=== PATIENT | female | born 1965 | race Caucasian/White ===

== ENCOUNTER 2017-09-09 18:26 | Emergency (ER) | payer SELFPAY ==
[~2017-09-09] VITALS: Ht 157.5 cm; Wt 104.3 kg
[~2017-09-09 18:26] MED LIST: AMOX500C2 PO; FLT05NA16 NS; Flexeril PO; HYDR-3454 PO; NAPR-1071 PO; PHEN-566 PO
--- OUTSIDE RECORDS SUMMARY | 2017-09-09 18:32 | XMS REPORT ---
Author Author HANSEL ROSA Organization [facility] Address [address] [place] [address] Care Team Providers Care Thread Reeler Name Role Phone HAMMLATASHA MartinezELE Unavailable PROBLEMS Type Condition ICD9-CM Code EXQ76-RW Code Onset Dates Condition Status SNOMED Code Problem Abnormal appearance of skin L98.9 Active 310885327 Problem Encounter for well woman exam Z01.419 Active 704700584 Problem STD (sexually transmitted disease) A64 Active 5281066 Problem Acquired hypothyroidism E03.9 Active 253055069 Problem Lump of breast, right N63 Active 24670552 Problem Menopausal symptoms N95.1 Active 35885716 Problem Hot flashes due to menopause N95.1 Active 706442382 Problem Routine adult health maintenance Z00.00 Active 426156557 Problem Encounter for screening for malignant neoplasm of cervix Z12.4 Active 945663302 Problem Morbid (severe) obesity due to excess calories E66.01 Active 150768943 Problem Body mass index (BMI) of 40.0-44.9 in adult Z68.41 Active 786781488 ALLERGIES No Information SOCIAL HISTORY Never Assessed PLAN OF CARE VITAL SIGNS MEDICATIONS No Known Medications RESULTS No Results PROCEDURES No Known procedures IMMUNIZATIONS No Known Immunizations MEDICAL (GENERAL) HISTORY Type Description Date Medical History + H Pylori infection Medical History Helicobacter pylori (H. pylori) infection Surgical History section x4 Surgical History tubal ligation Surgical History cholecystectomy Surgical History hernia repair
--- OUTSIDE RECORDS SUMMARY | 2017-09-09 18:32 | XMS REPORT ---
Author Author HANSEL ROSA Organization [facility] Address [address] [place] [address] Care Team Providers Care Esl Instructor Name Role Phone HAMMROSA Martinez Unavailable PROBLEMS Type Condition ICD9-CM Code RWM12-AL Code Onset Dates Condition Status SNOMED Code Problem Acquired hypothyroidism E03.9 Active 876770252 Assessment Abnormal TSH R79.89 09 Apr, 2016 Active 145813869 Problem Encounter for well woman exam Z01.419 Active 316934904 Problem Encounter for screening for malignant neoplasm of cervix Z12.4 Active 019682609 Problem Abnormal appearance of skin L98.9 Active 070012386 Problem Lump of breast, right N63 Active 28317615 Problem STD (sexually transmitted disease) A64 Active 6789433 Problem Routine adult health maintenance Z00.00 Active 776783184 ALLERGIES Unknown Allergies SOCIAL HISTORY No smoking Hx information available PLAN OF CARE VITAL SIGNS MEDICATIONS Unknown Medications RESULTS Name Result Date Reference Range THYROID ANALYZER 2016-05-01 TSH 8.380 0.450-4.500 T4,Free (Direct) 0.79 0.82-1.77 PROCEDURES Procedure Date Ordered Related Diagnosis Body Site ROUTINE VENIPUNCTURE 2016-05-01 N/A ASSAY THYROID STIM HORMONE May 01, 2016 VENIPUNCT, ROUTINE* May 01, 2016 IMMUNIZATIONS No Known Immunizations
--- OUTSIDE RECORDS SUMMARY | 2017-09-09 18:32 | XMS REPORT ---
Author Author ROSA HAMM Organization [employer] Address Unknown Phone Unavailable Care Team Providers Care Atomic Process Engineer Name Role Phone ROSA HAMM CP Unavailable Allergies No Known Allergies Problems Problem Type Condition Code Onset Dates Condition Status Assessment Acquired hypothyroidism E03.9 Active Problem Lump of breast, right N63 Active Problem Acquired hypothyroidism E03.9 Active Problem Body mass index (BMI) of 40.0-44.9 in adult Z68.41 Active Problem Encounter for well woman exam Z01.419 Active Problem Morbid (severe) obesity due to excess calories E66.01 Active Problem Routine adult health maintenance Z00.00 Active Problem Abnormal appearance of skin L98.9 Active Problem Encounter for screening for malignant neoplasm of cervix Z12.4 Active Problem STD (sexually transmitted disease) A64 Active Medications Medication Code System Code Instructions Start Date End Date Status Dosage Levothyroxine Sodium [facility] [address]-14 50 MCG Orally May 12, 2016 1 tablet on an empty stomach in the morning Results No Known Results Summary Purpose eClinicalWorks Submission
--- OUTSIDE RECORDS SUMMARY | 2017-09-09 18:33 | XMS REPORT ---
Author Author HANSEL ROSA Organization [facility] Address [address] [place] [address] Care Team Providers Care Silk Opener Name Role Phone HAMMROSA Martinez Unavailable PROBLEMS Type Condition ICD9-CM Code ZQU78-YQ Code Onset Dates Condition Status SNOMED Code Problem Abnormal appearance of skin L98.9 Active 352066274 Problem Encounter for well woman exam Z01.419 Active 519823043 Problem STD (sexually transmitted disease) A64 Active 7852518 Problem Acquired hypothyroidism E03.9 Active 694684649 Problem Lump of breast, right N63 Active 54638004 Problem Menopausal symptoms N95.1 Active 68850923 Problem Hot flashes due to menopause N95.1 Active 414376824 Problem Routine adult health maintenance Z00.00 Active 389557083 Problem Encounter for screening for malignant neoplasm of cervix Z12.4 Active 575546560 Problem Morbid (severe) obesity due to excess calories E66.01 Active 152507314 Problem Body mass index (BMI) of 40.0-44.9 in adult Z68.41 Active 812941452 ALLERGIES No Information SOCIAL HISTORY Never Assessed PLAN OF CARE VITAL SIGNS MEDICATIONS Medication Instructions Dosage Frequency Start Date End Date Duration Status Levothyroxine Sodium 75 MCG Orally Once a day 1 tablet on an empty stomach in the morning 24h 20 Apr, 2016 60 days Active RESULTS No Results PROCEDURES No Known procedures IMMUNIZATIONS No Known Immunizations MEDICAL (GENERAL) HISTORY Type Description Date Medical History + H Pylori infection Medical History Helicobacter pylori (H. pylori) infection Surgical History section x4 Surgical History tubal ligation Surgical History cholecystectomy Surgical History hernia repair
--- OUTSIDE RECORDS SUMMARY | 2017-09-09 18:33 | XMS REPORT ---
Author Author ROSA HAMM Organization [employer] Address Unknown Phone Unavailable Care Team Providers Care Japanese Interpreter Name Role Phone ROSA HAMM CP Unavailable Allergies No Known Allergies Problems Problem Type Condition Code Onset Dates Condition Status Assessment Breast lump on right side at 2 o'clock position N63 Active Problem Encounter for screening for malignant neoplasm of cervix Z12.4 Active Problem STD (sexually transmitted disease) A64 Active Problem Encounter for well woman exam Z01.419 Active Problem Lump of breast, right N63 Active Problem Helicobacter pylori (H. pylori) infection 041.86 Active Problem Routine adult health maintenance Z00.00 Active Problem Abnormal appearance of skin L98.9 Active Medications No Known Medications Results No Known Results Summary Purpose eClinicalWorks Submission
--- OUTSIDE RECORDS SUMMARY | 2017-09-09 18:33 | XMS REPORT ---
Author Author ROSA HAMM Organization [facility] Address [address] [place] [address] Care Team Providers Care Health Information Specialist Name Role Phone HAMMLATASHA MartinezELE Unavailable PROBLEMS Type Condition ICD9-CM Code QVN19-TQ Code Onset Dates Condition Status SNOMED Code Problem Abnormal appearance of skin L98.9 Active 705390859 Problem Encounter for well woman exam Z01.419 Active 398275040 Problem STD (sexually transmitted disease) A64 Active 2736573 Problem Acquired hypothyroidism E03.9 Active 510494658 Problem Lump of breast, right N63 Active 88867368 Problem Menopausal symptoms N95.1 Active 97359130 Problem Hot flashes due to menopause N95.1 Active 044019311 Problem Routine adult health maintenance Z00.00 Active 146928226 Problem Encounter for screening for malignant neoplasm of cervix Z12.4 Active 175012419 Problem Morbid (severe) obesity due to excess calories E66.01 Active 788342362 Problem Body mass index (BMI) of 40.0-44.9 in adult Z68.41 Active 855650083 ALLERGIES No Known Allergies SOCIAL HISTORY Never Assessed PLAN OF CARE Activity Details Follow Up 4 Weeks Reason:weight management VITAL SIGNS Height 63 in 2016-11-05 Weight 238.3 lbs 2016-11-05 Temperature 97.6 degrees Fahrenheit 2016-11-05 Heart Rate 86 bpm 2016-11-05 Respiratory Rate 18 2016-11-05 BMI 42.21 kg/m2 2016-11-05 Blood pressure systolic 129 mmHg 2016-11-05 Blood pressure diastolic 78 mmHg 2016-11-05 MEDICATIONS Medication Instructions Dosage Frequency Start Date End Date Duration Status Premarin 0.625 MG/GM Vaginal twice weekly with 3 days between each application apply pea sized amount to vaginal vault Oct, 12 months Active Levothyroxine Sodium 75 MCG Orally Once a day 1 tablet on an empty stomach in the morning 24h 20 Apr, 2016 60 days Active Contrave 8-90 MG Orally Twice a day 2 tablets twice a day 12h 03 Jun, 2016 Nov, 30 days Active RESULTS No Results PROCEDURES No Known procedures IMMUNIZATIONS No Known Immunizations MEDICAL (GENERAL) HISTORY Type Description Date Medical History + H Pylori infection Medical History Helicobacter pylori (H. pylori) infection Surgical History section x4 Surgical History tubal ligation Surgical History cholecystectomy Surgical History hernia repair
--- OUTSIDE RECORDS SUMMARY | 2017-09-09 18:33 | XMS REPORT ---
Author Author ROSA HAMM [facility] eClinicalWorks Address Unknown Phone Unavailable Care Team Providers Care New Business Clerk Name Role Phone ROSA HAMM CP Unavailable Allergies, Adverse Reactions, Alerts Substance Reaction Event Type N.K.D.A. Info Not Available Non Drug Allergy Problems Problem Type Condition Code Onset Dates Condition Status Assessment Acquired hypothyroidism E03.9 Active Problem Lump of breast, right N63 Active Problem Acquired hypothyroidism E03.9 Active Assessment Morbid (severe) obesity due to excess calories E66.01 Active Assessment Body mass index (BMI) of 40.0-44.9 in adult Z68.41 Active Problem Body mass index (BMI) of [...] Date End Date Status Dosage Levothyroxine Sodium [facility] [address]-11 25 MCG Orally Once a day May 12, 2016 1 tablet on an empty stomach in the morning Naproxen [facility] [address]-17 500 MG Orally Twice a day 1 tablet as needed Contrave [facility] [address]-43 8-90 MG Orally Twice a day Jun 25, 2016 1 tab in am x 1 wk, one tab bid x 1 wk, 2 tabs am and 1 pm x 1 wk, then 2 tabs bid Cyclobenzaprine HCl [facility] [address]-74 10 mg Orally 2 times a day 1 tablet as needed Procedures Procedure Coding System Code Date VENIPUNCT, ROUTINE* CPT-4 89138 Jun 25, 2016 ASSAY THYROID STIM HORMONE CPT-4 22259 Jun 25, 2016 Office Visit, Est Pt., Level 3 CPT-4 48315 Jun 25, 2016 Vital Signs Date/Time: Jun 25, 2016 Cardiac Monitoring Heart Rate 84 bpm Weight 232.7 lbs Height 63 in BMI 41.22 Index Blood Pressure Diastolic 80 mmHg Blood Pressure Systolic 132 mmHg Results Name Result Date Reference Range Unit Abnormality Flag ROUTINE VENIPUNCTURE TSH ----TSH 7.340 [id number] 0.450-4.500 uIU/mL H Summary Purpose eClinicalWorks Submission
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
--- OUTSIDE RECORDS SUMMARY | 2017-09-09 18:33 | XMS REPORT ---
Author Author ROSA HAMM [facility] eClinicalWorks Address Unknown Phone Unavailable Care Team Providers Care Medical Csr Name Role Phone ROSA HAMM CP Unavailable Allergies, Adverse Reactions, Alerts Substance Reaction Event Type N.K.D.A. Info Not Available Non Drug Allergy Problems Problem Type Condition Code Onset Dates Condition Status Assessment STD (sexually transmitted disease) A64 Active Assessment Encounter for well woman exam Z01.419 Active Assessment Encounter for screening for malignant neoplasm of cervix Z12.4 Active Assessment Abnormal appearance of skin L98.9 Active Assessment Routine adult health maintenance Z00.00 Active Problem Encounter for screening for malignant neoplasm of cervix Z12.4 Active Problem STD (sexually transmitted disease) A64 Active Problem Encounter for well woman exam Z01.419 Active Problem Lump of breast, right N63 Active Problem Helicobacter pylori (H. pylori) infection 041.86 Active Problem Routine adult health maintenance Z00.00 Active Problem Abnormal appearance of skin L98.9 Active Medications Medication Code System Code Instructions Start Date End Date Status Dosage Augmentin [facility] [address]-33 875-125 MG Orally every 12 hrs Apr 06, 2016 Apr 16, 2016 1 tablet Procedures Procedure Coding System Code Date NGUYEN VAG, DNA, DIR PROBE CPT-4 52097 Apr 10, 2016 TRICHOMONAS ASSAY W/OPTIC CPT-4 23439 Apr 10, 2016 CULTURE, BACTERIA, OTHER CPT-4 78556 Apr 10, 2016 LIPID PANEL CPT-4 06389 Apr 10, 2016 ASSAY THYROID STIM HORMONE CPT-4 22084 Apr 10, 2016 No Charge CPT-4 34492 Apr 10, 2016 SPECIMEN HANDLING CPT-4 05105 Apr 10, 2016 VENIPUNCT, ROUTINE* CPT-4 56803 Apr 10, 2016 BIOPSY OF SKIN LESION CPT-4 44933 Apr 10, 2016 COMPLETE CBC W/AUTO DIFF WBC CPT-4 60385 Apr 10, 2016 Separate E/M CPT-4 25 Apr 10, 2016 COMPREHEN METABOLIC PANEL CPT-4 91053 Apr 10, 2016 GLYCATED HEMOGLOBIN TEST CPT-4 39993 Apr 10, 2016 Vital Signs Date/Time: Apr 10, 2016 Blood Pressure Systolic 132 mmHg Cardiac Monitoring Heart Rate regular:65 bpm Height 63 in Blood Pressure Diastolic 92 mmHg Results No Known Results Summary Purpose eClinicalWorks Submission
--- OUTSIDE RECORDS SUMMARY | 2017-09-09 18:33 | XMS REPORT ---
Author Author ROSA HAMM Organization [facility] Address [address] [place] [address] Care Team Providers Care Clinical Services Director Name Role Phone ROSA HAMM Unavailable PROBLEMS Type Condition ICD9-CM Code ZOI03-KZ Code Onset Dates Condition Status SNOMED Code Problem Acquired hypothyroidism E03.9 Active 204530716 Assessment Acquired hypothyroidism E03.9 Apr, Active 179158121 Problem Encounter for well woman exam Z01.419 Active 768761951 Problem Encounter for screening for malignant neoplasm of cervix Z12.4 Active 850346936 Problem Abnormal appearance of skin L98.9 Active 276079953 Problem Lump of breast, right N63 Active 07720708 Problem STD (sexually transmitted disease) A64 Active 6415704 Problem Routine adult health maintenance Z00.00 Active 076524702 ALLERGIES Unknown Allergies SOCIAL HISTORY No smoking Hx information available PLAN OF CARE VITAL SIGNS MEDICATIONS Medication Instructions Dosage Frequency Start Date End Date Duration Status Levothyroxine Sodium 25 MCG Orally Once a day 1 tablet on an empty stomach in the morning 24h Apr, Active RESULTS No Results PROCEDURES No Known procedures IMMUNIZATIONS No Known Immunizations
--- OUTSIDE RECORDS SUMMARY | 2017-09-09 18:33 | XMS REPORT ---
Author Author ROSA HAMM Organization [employer] Address Unknown Phone Unavailable Care Team Providers Care Auto Overhauler Name Role Phone ROSA HAMM CP Unavailable Allergies No Known Allergies Problems Problem Type Condition Code Onset Dates Condition Status Assessment Lump of breast, right N63 Active Problem Encounter for screening for [...]
--- OUTSIDE RECORDS SUMMARY | 2017-09-09 18:33 | XMS REPORT ---
Author Author HANSEL ROSA Organization [facility] Address [address] [place] [address] Care Team Providers Care Strategy Manager Name Role Phone HAMMROSA Martinez Unavailable PROBLEMS Type Condition ICD9-CM Code CNO10-CJ Code Onset Dates Condition Status SNOMED Code Problem Abnormal appearance of skin L98.9 Active 989692356 Problem Encounter for well woman exam Z01.419 Active 206050672 Problem STD (sexually transmitted disease) A64 Active 2470723 Problem Acquired hypothyroidism E03.9 Active 720759164 Problem Lump of breast, right N63 Active 20744196 Problem Menopausal symptoms N95.1 Active 10112905 Problem Hot flashes due to menopause N95.1 Active 679061845 Problem Routine adult health maintenance Z00.00 Active 673507116 Problem Encounter for screening for malignant neoplasm of cervix Z12.4 Active 349978761 Problem Morbid (severe) obesity due to excess calories E66.01 Active 782310337 Problem Body mass index (BMI) of 40.0-44.9 in adult Z68.41 Active 562763548 ALLERGIES No Information SOCIAL HISTORY Never Assessed PLAN OF CARE VITAL SIGNS MEDICATIONS No Known Medications RESULTS Name Result Date Reference Range TSH 2016-10-08 TSH 10.380 0.450-4.500 PROCEDURES Procedure Date Ordered Result Body Site ASSAY THYROID STIM HORMONE Oct 08, 2016 VENIPUNCT, ROUTINE* Oct 08, 2016 IMMUNIZATIONS No Known Immunizations MEDICAL (GENERAL) HISTORY Type Description Date Medical History + H Pylori infection Medical History Helicobacter pylori (H. pylori) infection Surgical History section x4 Surgical History tubal ligation Surgical History cholecystectomy Surgical History hernia repair
--- OUTSIDE RECORDS SUMMARY | 2017-09-09 18:33 | XMS REPORT ---
Author Author ROSA HAMM Organization [employer] Address Unknown Phone Unavailable Care Team Providers Care Railway Engineer Name Role Phone ROSA HAMM CP Unavailable Allergies No Known Allergies Problems Problem Type Condition Code Onset Dates Condition Status Assessment Abnormal TSH R79.89 Active Problem Encounter for screening for malignant [...]
--- OUTSIDE RECORDS SUMMARY | 2017-09-09 18:33 | XMS REPORT ---
Author Author ROSA HAMM Organization [employer] Address Unknown Phone Unavailable Care Team Providers Care Enterostomal Therapy Nurse Name Role Phone ROSA HAMM CP Unavailable Allergies, Adverse Reactions, Alerts Substance Reaction Event Type N.K.D.A. Info Not Available Non Drug Allergy Problems Problem Type Condition Code Onset Dates Condition Status Problem Helicobacter pylori (H. pylori) infection 041.86 Active Assessment Cough R05 Active Problem Lump of breast, right N63 Active Assessment Acute non-recurrent sinusitis, unspecified location J01.90 Active Assessment Lump of breast, right N63 Active Medications Medication Code System Code Instructions Start Date End Date Status Dosage Augmentin [facility] [address]-83 875-125 MG Orally every 12 hrs Apr 06, 2016 Apr 16, 2016 1 tablet Procedures Procedure Coding System Code Date Office Visit, Est Pt., Level 3 CPT-4 02074 Apr 06, 2016 Vital Signs Date/Time: Apr 06, 2016 Cardiac Monitoring Heart Rate 84 bpm Weight 225 lbs Height 63 in BMI 39.85 Index Blood Pressure Diastolic 88 mmHg Blood Pressure Systolic 136 mmHg Results No Known Results Summary Purpose [employer] Submission
--- NOTE | 2017-09-09 19:29 | ED Cough/URI ---
General Chief Complaint: Cough/Cold/Flu Symptoms Stated Complaint: HEADACHE,BODY ACHES,CHILLS,COUGH Nursing Triage Note: c/o cough, feeling warm and chills starting yesterday Source: patient Exam Limitations: no limitations History of Present Illness Date Seen by Provider: Sep 09, 2017 Time Seen by Provider: 19:27 Initial Comments To ER with a cough, chills, body aches, nausea that began yesterday. Timing/Duration: constant Severity/Quality: moderate Associated Symptoms: cough Allergies and Home Medications Allergies Coded Allergies: No Known Drug Allergies (Unverified , 12/06/08) Home Medications Amoxicillin 500 Mg Capsule, 2 EACH PO TID, #60 Ref 0 Prescribed by: THOMAS BILL on 12/09/14 2255 Hydrocodone Bit/Acetaminophen 1 Each Tablet, 1 TAB PO Q4H PRN for PAIN, #30 Prescribed by: DARLENE CORTES on 09/28/13 0934 Naproxen 500 Mg Tablet, 500 MG PO BID PRN for PAIN, #30 Prescribed by: JAK VALLADARES on 06/09/16 1612 Phentermine Hcl 37.5 Mg Tab.rapdis, 37.5 MG PO DAILY, (Reported) [Flexeril] , 10 MG PO BID PRN for PAIN, #20 Prescribed by: JAK VALLADARES on 06/09/16 1612 Constitutional: see HPI EENTM: see HPI Respiratory: see HPI, cough Genitourinary: no symptoms reported Musculoskeletal: no symptoms reported Skin: no symptoms reported Psychiatric/Neurological: No Symptoms Reported Past Euinbhz-Qdkpgv-Qslwao Hx Patient Social History Alcohol Use: Denies Use Recreational Drug Use: No Smoking Status: Former Smoker Type Used: Cigarettes Recent Foreign Travel: No Contact w/Someone Who Travel: No Recent Infectious Disease Expo: No Recent Hopitalizations: No Surgeries History of Surgeries: Yes (sinus, hernia repair, d&c, 4 c-sections) Surgeries: Gallbladder, Tubal Ligation Respiratory History of Respiratory Disorde: No Respiratory Disorders: Asthma Cardiovascular History of Cardiac Disorders: No Neurological History of Neurological Disord: No Reproductive System Hx Reproductive Disorders: No Gastrointestinal History of Gastrointestinal Di: No Musculoskeletal History of Musculoskeletal Dis: No Endocrine History of Endocrine Disorders: Yes Endocrine Disorders: Hypothyroidsim Cancer History of Cancer: No Psychosocial History of Psychiatric Problem: No Integumentary History of Skin or Integumenta: No Blood Transfusions History of Blood Disorders: No Physical Exam Vital Signs Vital Sign - Last 12Hours 09/09/17 19:23 Temp 99.8 Pulse 105 Resp 18 B/P (MAP) 135/99 (111) Pulse Ox 96 Capillary Refill : Less Than 3 Seconds General Appearance: WD/WN, no apparent distress Eyes: Bilateral Eye Normal Inspection, Bilateral Eye PERRL, Bilateral Eye EOMI HEENT: PERRL/EOMI, normal ENT inspection Neck: non-tender, full range of motion Respiratory: normal breath sounds, no respiratory distress, no accessory muscle use Cardiovascular: regular rate, rhythm, no murmur Gastrointestinal: normal bowel sounds, non tender, soft Extremities: normal range of motion, non-tender Neurologic/Psychiatric: alert, normal mood/affect, oriented x 3 Skin: normal color, warm/dry Progress/Results/Core Measures Suspected Sepsis Recent Fever Within 48 Hours: No Infection Criteria Present: Suspected New Infection New/Unexplained Altered Menta: No Sepsis Screen: No Definite Risk Sepsis Diagnosis: SIRS Temperature:99.8 Pulse: 105 Respiratory Rate: 18 Blood Pressure 135 /99 Mean: 111 Results/Orders Micro Results Microbiology 09/09/17 Influenza Types A,B Antigen (VIPIN) - Final, Complete My Orders Orders - JAK VALLADARES APRN Influenza A And B Antigens (09/09/17 19:26) Chest Pa/Lat (2 View) (09/09/17 19:26) Vital Signs/I&O Vital Sign - Last 12Hours 09/09/17 19:23 Temp 99.8 Pulse 105 Resp 18 B/P (MAP) 135/99 (111) Pulse Ox 96 Capillary Refill : Less Than 3 Seconds Blood Pressure Mean: 111 Departure Impression Impression: Primary Impression: Influenza Disposition: 01 HOME, SELF-CARE Condition: Stable Departure-Patient Inst. Decision time for Depature: 20:35 Referrals: [facility] (PCP/Family) Primary Care Physician Patient Instructions: Flu Add. Discharge Instructions: 1. Return to ER for any concerns 2. Nausea medication as needed 3. Expect symptoms to persist for 5-7 days. Follow-up with your doctor next week for recheck. Return to ER for any shortness of breath or other concerns. All discharge instructions reviewed with patient and/or family. Voiced understanding. Work/School Note: Work Release Form Date Seen in the Emergency Department: Sep 09, 2017 Return to Work: Sep 11, 2017 JAK VALLADARES APRN Sep 09, 2017 19:29
--- NOTE | 2017-09-09 19:47 | Diagnostic Imaging Report ---
INDICATION: Cough, fever and chills. COMPARISON: 09/13/2012. FINDINGS: 2 views of the chest are obtained. Heart size is normal. The pulmonary vessels appear unremarkable. There is no pneumothorax, mediastinal widening or pleural fluid demonstrated. There is some eventration of right hemidiaphragm which is unchanged. Lungs are clear. Osseous structures appear unremarkable. IMPRESSION: No acute abnormality is demonstrated. No interval change from the prior study. Dictated by: Dictated on workstation # [id number]
[2017-09-09] MEDS ORDERED: RX-ONDANSETRON 4 MG ODT (ZOFRAN) PPK #4 PO STA ×2 (20:38→20:44)
[2017-09-09] MEDS ORDERED: RX-OSELTAMIVIR 75 MG (TAMIFLU) BOX OF 10 PO ONE (20:41)
[2017-09-09] MEDS ORDERED: RX-OSELTAMIVIR 75 MG (TAMIFLU) BOX OF 10 PO STA (20:45)
[2017-09-09 20:59] VITALS: BP 0/0
[2017-09-09] MEDS ORDERED: OSELTAMIVIR 75 MG (TAMIFLU) BOX OF 10 PO SCH (21:00)
== END 2017-09-09 20:59 | disposition home or self-care (01) ==
LOC: EDUNIT# 18:26 → ER 18:28
DX: J11.1 Influenza due to unidentified influenza virus with other respiratory manifestations (principal); E03.9 Hypothyroidism, unspecified; J45.909 Unspecified asthma, uncomplicated; Z87.891 Personal history of nicotine dependence; Z98.51 Tubal ligation status; Z90.49 Acquired absence of other specified parts of digestive tract
CPT/HCPCS: 71046; 87804; 99283

== ENCOUNTER 2017-12-06 08:16 | Emergency (ER) | payer SELFPAY ==
[~2017-12-06] VITALS: Ht 157.5 cm; Wt 104.3 kg
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
[2017-12-06] MEDS ORDERED: KETOROLAC 30 MG/ML VIAL IVP ONE (09:00)
[2017-12-06] MEDS ORDERED: ORPHENADRINE 60 MG/2 ML (NORFLEX) AMP IV ONE (09:00)
[2017-12-06] MEDS ORDERED: fentaNYL INJECTION 100 MCG/2 ML AMP IVP ONE (09:45)
[2017-12-06] MEDS ORDERED: methylPREDNISolone 125 MG (Solu-MEDROL) VIAL IVP ONE (09:45)
[2017-12-06] MEDS ORDERED: oxyCODONE/APAP 5/325MG (PERCOCET 5) TABLET PO ONE (10:30)
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
[2017-12-06] MEDS ORDERED: PRD20T PO (10:35)
[2017-12-06] MEDS ORDERED: CYCL10TA9 PO (10:35)
[2017-12-06] MEDS ORDERED: ACHD5005 PO (10:35)
[2017-12-06 10:54] VITALS: BP 132/86
== END 2017-12-06 10:54 | disposition home or self-care (01) ==
LOC: EDUNIT# 08:16 → ER 08:17
DX: M62.838 Other muscle spasm (principal); E03.9 Hypothyroidism, unspecified; Z98.51 Tubal ligation status; Z87.59 Personal history of other complications of pregnancy, childbirth and the puerperium; Z98.890 Other specified postprocedural states; Z87.828 Personal history of other (healed) physical injury and trauma
CPT/HCPCS: 96374; 96375

== ENCOUNTER 2019-01-06 20:52 | Emergency (ER) | payer SELFPAY ==
[~2019-01-06] VITALS: Ht 157.5 cm; Wt 84.8 kg
[~2019-01-06 20:52] MED LIST changes: +ACHD5005 PO; +CYCL10TA9 PO; +PRD20T PO
--- OUTSIDE RECORDS SUMMARY | 2019-01-06 20:58 | XMS REPORT ---
Author Author Migration, Doctor Organization [facility] Address Unknown Phone Unavailable Care Team Providers Care Billing Rep Name Role Phone Migration, Doctor Unavailable Unavailable PROBLEMS Type Condition ICD9-CM Code TBS50-RV Code Onset Dates Condition Status SNOMED Code Problem Abnormal appearance of skin L98.9 Active 630149716 Problem STD (sexually transmitted disease) A64 Active 9944640 Problem Encounter for well woman exam Z01.419 Active 247756628 Problem Hot flashes due to menopause N95.1 Active 898843199 Problem Lump of breast, right N63 Active 79138982 Problem Menopausal symptoms N95.1 Active 41775698 Problem Acquired hypothyroidism E03.9 Active 605191393 Problem Encounter for screening for malignant neoplasm of cervix Z12.4 Active 895602231 Problem Routine adult health maintenance Z00.00 Active 391441484 Problem Body mass index (BMI) of 40.0-44.9 in adult Z68.41 Active 988773366 Problem Morbid (severe) obesity due to excess calories E66.01 Active 136392345 ALLERGIES No Information ENCOUNTERS Encounter Location Date Diagnosis [place] [id number] [place] [phone] Oct, Menopausal symptoms N95.1 and Morbid (severe) obesity due to excess calories E66.01 [place] [address] [place] [phone] Oct, [facility] [id number] [place] [phone] Sep, Acquired hypothyroidism E03.9 [place] [id number] [place] [phone] Sep, Acquired hypothyroidism E03.9 [place] [id number] [place] [phone] Jun, Acquired hypothyroidism E03.9 [place] [id number] [place] [phone] 03 Jun, 2016 Acquired hypothyroidism E03.9 ; Body mass index (BMI) of 40.0-44.9 in adult Z68.41 and Morbid (severe) obesity due to excess calories E66.01 [facility] [id number] [place] [phone] 28 Apr, 2016 [facility] [id number] [place] [phone] 20 Apr, 2016 Acquired hypothyroidism E03.9 [place] [address] [address] 09 Apr, 2016 Abnormal TSH R79.89 [place] [id number] [place] [phone] Mar, Breast lump on right side at 2 o'clock position N63 [place] [address] [phone] Mar, Abnormal TSH R79.89 [place] [id number] [place] [phone] Mar, Lump of breast, right N63 [place] [id number] [place] [phone] Mar, Encounter for well woman exam Z01.419 ; Encounter for screening for malignant neoplasm of cervix Z12.4 ; STD (sexually transmitted disease) A64 ; Routine adult health maintenance Z00.00 and Abnormal appearance of skin L98.9 [facility] [id number] [place] [phone] 15 Mar, 2016 Cough R05 ; Acute non-recurrent sinusitis, unspecified location J01.90 and Lump of breast, right N63 [facility] [address] [id number] 23 Jan, 2015 Dental examination V72.2 [place] [address] [phone] 14 Nov, 2014 [facility] [id number] [address] Nov, [facility] [address] [place] [address] December, [facility] [id number] [address] Apr, [facility] [address] [place] [address] Apr, [facility] [id number] [address] Mar, [facility] [address] [place] [address] Jun, [facility] [address] [place] [address] 16 Mar, 2010 [facility] [address] [place] [address] Mar, [facility] [id number] [address] Jun, IMMUNIZATIONS No Known Immunizations SOCIAL HISTORY Never Assessed REASON FOR VISIT EMR-[facility] PLAN OF CARE VITAL SIGNS MEDICATIONS No Known Medications RESULTS No Results PROCEDURES No Known procedures INSTRUCTIONS MEDICATIONS ADMINISTERED No Known Medications MEDICAL (GENERAL) HISTORY Type Description Date Medical History + H Pylori infection Medical History Helicobacter pylori (H. pylori) infection Surgical History section x4 Surgical History tubal ligation Surgical History cholecystectomy Surgical History hernia repair
--- OUTSIDE RECORDS SUMMARY | 2019-01-06 20:58 | XMS REPORT ---
Author Author Migration, Doctor Organization [facility] Address Unknown Phone Unavailable Care Team Providers Care Electronic Installer Name Role Phone Migration, Doctor Unavailable Unavailable PROBLEMS Type Condition ICD9-CM Code [id number] Code Onset Dates Condition Status SNOMED Code Problem Abnormal appearance of skin L98.9 Active 938840765 Problem STD (sexually transmitted disease) A64 Active 8528392 Problem Encounter for well woman exam Z01.419 Active 596633024 Problem Hot flashes due to menopause N95.1 Active 155883308 Problem Lump of breast, right N63 Active 60454105 Problem Menopausal symptoms N95.1 Active 35602465 Problem Acquired hypothyroidism E03.9 Active 224039022 Problem Encounter for screening for malignant neoplasm of cervix Z12.4 Active 381577395 Problem Routine adult health maintenance Z00.00 Active 447609987 Problem Body mass index (BMI) of 40.0-44.9 in adult Z68.41 Active 712821352 Problem Morbid (severe) obesity due to excess calories E66.01 Active 653812302 ALLERGIES No Information ENCOUNTERS Encounter Location Date Diagnosis [place] [id number] [place] [address] Oct, Menopausal symptoms N95.1 and Morbid (severe) obesity due to excess calories E66.01 [place] [address] [place] [address] Oct, [facility] [id number] [place] [address] Sep, Acquired hypothyroidism E03.9 [place] [id number] [place] [address] Sep, Acquired hypothyroidism E03.9 [place] [id number] [place] [address] Jun, Acquired hypothyroidism E03.9 [place] [id number] [place] [address] 03 Jun, 2016 Acquired hypothyroidism E03.9 ; Body mass index (BMI) of 40.0-44.9 in adult Z68.41 and Morbid (severe) obesity due to excess calories E66.01 [facility] [id number] [place] [address] 28 Apr, 2016 [facility] [id number] [place] [address] 20 Apr, 2016 Acquired hypothyroidism E03.9 [place] [address] [address] 09 Apr, 2016 Abnormal TSH R79.89 [place] [id number] [place] [address] Mar, Breast lump on right side at 2 o'clock position N63 [place] [address] [address] Mar, Abnormal TSH R79.89 [place] [id number] [place] [address] Mar, Lump of breast, right N63 [place] [id number] [place] [address] Mar, Encounter for well woman exam Z01.419 ; Encounter for screening for malignant neoplasm of cervix Z12.4 ; STD (sexually transmitted disease) A64 ; Routine adult health maintenance Z00.00 and Abnormal appearance of skin L98.9 [facility] [id number] [place] [address] 15 Mar, 2016 Cough R05 ; Acute non-recurrent sinusitis, unspecified location J01.90 and Lump of breast, right N63 [facility] [address] [phone] 23 Jan, 2015 Dental examination V72.2 [place] [address] [address] 14 Nov, 2014 [facility] [id number], [place] [address] Nov, [facility] [address] [place] [address] December, [facility] [id number] [address] Apr, [facility] [address], [place] [address] Apr, [facility] [id number], [place] [address] Mar, [facility] [address], [place] [address] Jun, [facility] [address], [place] [address] 16 Mar, 2010 [facility] [address], [place] [address] Mar, [facility] [id number], [place] [address] Jun, IMMUNIZATIONS No Known Immunizations SOCIAL HISTORY Never Assessed REASON FOR VISIT EMR[place] PLAN OF CARE VITAL SIGNS MEDICATIONS No Known Medications RESULTS No Results PROCEDURES No Known procedures INSTRUCTIONS MEDICATIONS ADMINISTERED No Known Medications MEDICAL (GENERAL) HISTORY Type Description Date Medical History + H Pylori infection Medical History Helicobacter pylori (H. pylori) infection Surgical History section x4 Surgical History tubal ligation Surgical History cholecystectomy Surgical History hernia repair
--- OUTSIDE RECORDS SUMMARY | 2019-01-06 20:58 | XMS REPORT ---
Author Author Migration, Doctor Organization [facility] Address Unknown Phone Unavailable Care Team Providers Care Coordinator Of Placement Name Role Phone Migration, Doctor Unavailable Unavailable PROBLEMS Type Condition ICD9-CM Code TVP36-CL Code Onset Dates Condition Status SNOMED Code Problem Abnormal appearance of skin L98.9 Active 308675953 Problem STD (sexually transmitted disease) A64 Active 1132833 Problem Encounter for well woman exam Z01.419 Active 617516752 Problem Hot flashes due to menopause N95.1 Active 582985529 Problem Lump of breast, right N63 Active 07353811 Problem Menopausal symptoms N95.1 Active 71450669 Problem Acquired hypothyroidism E03.9 Active 484293126 Problem Encounter for screening for malignant neoplasm of cervix Z12.4 Active 274791861 Problem Routine adult health maintenance Z00.00 Active 888615583 Problem Body mass index (BMI) of 40.0-44.9 in adult Z68.41 Active 464799010 Problem Morbid (severe) obesity due to excess calories E66.01 Active 693835363 ALLERGIES No Information ENCOUNTERS Encounter Location Date Diagnosis [place] [id number] [place] [address] Oct, Menopausal symptoms N95.1 and Morbid (severe) obesity due to excess calories E66.01 [place] [address] [place] [address] Oct, [facility] [id number] [place] [address] Sep, Acquired hypothyroidism E03.9 [place] [id number] [place] [address] Sep, Acquired hypothyroidism E03.9 [place] [id number] [place] [address] Jun, Acquired hypothyroidism E03.9 [place] [id number] [place] [address] 03 Jun, 2016 Acquired hypothyroidism E03.9 ; Body mass index (BMI) of 40.0-44.9 in adult Z68.41 and Morbid (severe) obesity due to excess calories E66.01 [facility] [id number] [place] [address] 28 Apr, 2016 [facility] [id number] [place] [address] 20 Apr, 2016 Acquired hypothyroidism E03.9 [place] [address] [address] 09 Apr, 2016 Abnormal TSH R79.89 [place] [id number] [place] [address] Mar, Breast lump on right side at 2 o'clock position N63 [place] [address] [address] Mar, Abnormal TSH R79.89 [place] [id number] [place] [address] Mar, Lump of breast, right N63 [place] [id number] [place] [address] Mar, Encounter for well woman exam Z01.419 ; Encounter for screening for malignant neoplasm of cervix Z12.4 ; STD (sexually transmitted disease) A64 ; Routine adult health maintenance Z00.00 and Abnormal appearance of skin L98.[address] [facility] [id number] [place] [address] 15 Mar, 2016 Cough R05 ; Acute non-recurrent sinusitis, unspecified location J01.90 and Lump of breast, right N63 [facility] [address] [id number] 23 Jan, 2015 Dental examination V72.2 [place] [address] [address] 14 Nov, 2014 [facility] [address] [facility] [id number] [address] Nov, [facility] [address] [facility] [id number] [address] December, [facility] [id number] [address] 20 Apr, 2012 [facility] [address] [facility] [id number] [address] Apr, [facility] [address] [facility] [id number] [address] Mar, [facility] [address] [address] Jun, [facility] [address] [address] Mar, [facility] [id number] [address] Mar, [facility] [id number] [address] Jun, IMMUNIZATIONS No Known Immunizations SOCIAL HISTORY Never Assessed REASON FOR VISIT EMR-[facility] [place] PLAN OF CARE VITAL SIGNS MEDICATIONS Medication Instructions Dosage Frequency Start Date End Date Duration Status Omeprazole Magnesium 20 mg 1 capsule by Oral route 2 times per day Apr, Active Metronidazole 500 mg 1 tablet by Oral route 2 times per day Mar, Active Amoxicillin 500 mg 2 capsule by Oral route 2 times per day for 14 day(s) Mar, Active RESULTS No Results PROCEDURES No Known procedures INSTRUCTIONS MEDICATIONS ADMINISTERED No Known Medications MEDICAL (GENERAL) HISTORY Type Description Date Medical History + H Pylori infection Medical History Helicobacter pylori (H. pylori) infection Surgical History section x4 Surgical History tubal ligation Surgical History cholecystectomy Surgical History hernia repair
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
[2019-01-06 22:25] LABS: BASOPHILS % (AUTO) 0 % (0-10); EOSINOPHILS # (AUTO) 0.5 10^3/uL (0.0-0.3); EOSINOPHILS % (AUTO) 6 % (0-10); HEMATOCRIT 39 % (35-52); HEMOGLOBIN 13.1 G/DL (11.5-16.0); LYMPHOCYTES % (AUTO) 39 % (12-44); MEAN CORPUSCULAR HEMOGLOBIN 30 PG (25-34); MEAN CORPUSCULAR HGB CONC 34 G/DL (32-36); MEAN CORPUSCULAR VOLUME 89 FL (80-99); MEAN PLATELET VOLUME 9.7 FL (7.4-10.4); MONOCYTES # (AUTO) 0.5 X 10^3 (0.0-1.0); MONOCYTES % (AUTO) 7 % (0-12); NEUTROPHILS # (AUTO) 3.7 X 10^3 (1.8-7.8); NEUTROPHILS % (AUTO) 48 % (42-75); PLATELET COUNT 334 10^3/uL (130-400); RED CELL DISTRIBUTION WIDTH 13.9 % (10.0-14.5); WHITE BLOOD COUNT 7.7 10^3/uL (4.3-11.0)
[2019-01-06 22:46] LABS: BILIRUBIN,URINE NEGATIVE (NEGATIVE); COLOR,URINE YELLOW; GLUCOSE, URINE (UA) NEGATIVE (NEGATIVE); KETONES,URINE 2+ (NEGATIVE); LEUKOCYTE ESTERASE ,URINE 2+ (NEGATIVE); NITRITE,URINE NEGATIVE (NEGATIVE); PH,URINE 5 (5-9); PROTEIN,URINE 1+ (NEGATIVE); UROBILINOGEN,URINE 4 MG/DL (NORMAL)
[2019-01-06 22:48] LABS: ALANINE AMINOTRANSFERASE 14 U/L (0-55); ALBUMIN 3.9 GM/DL (3.2-4.5); ALKALINE PHOSPHATASE 56 U/L (40-136); BILIRUBIN,TOTAL 0.4 MG/DL (0.1-1.0); BUN/CREATININE RATIO 16; CARBON DIOXIDE 22 MMOL/L (21-32); CHLORIDE 107 MMOL/L (98-107); CREATININE SERUM 0.75 MG/DL (0.60-1.30); GFR ESTIMATED > 60; GLUCOSE 86 MG/DL (70-105); POTASSIUM 3.8 MMOL/L (3.6-5.0); SODIUM 141 MMOL/L (135-145); TOTAL PROTEIN 6.5 GM/DL (6.4-8.2)
[2019-01-06 22:51] LABS: BACTERIA,URINE TRACE /HPF; CLARITY,URINE SL CLOUDY; WBC,URINE 0-2 /HPF
--- NOTE | 2019-01-06 23:11 | ED General ---
General Chief Complaint: Lower Extremity Stated Complaint: SWELLING IN L LEG Nursing Triage Note: AMBULATORY TO ED WITH C/O SWELLING TO LLE FROM KNEE TO ANKLE THAT STARTED YESTERDAY. DENIES CHRONIC EDEMA. DENIES SOA AND CHEST PAIN. 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 Nursing Sepsis Screen: No Definite Risk Source of Information: Patient Exam Limitations: No Limitations History of Present Illness Date Seen by Provider: January 06, 2019 Time Seen by Provider: 21:57 Initial Comments This 53-year-old woman presents to the emergency room with complaints of bilateral lower extremity edema, left greater than right. Symptoms were first noted yesterday. She denies any shortness of breath or chest pain. Vital signs are stable. Daily but is not painful. She has a sedentary job otherwise denies any sedentary periods of time, travel, or injury. She does not smoke. She does not take any hormones. She has had increased salt consumption recently as she has been snacking on heavily salted almonds. Allergies and Home Medications Allergies Coded Allergies: No Known Drug Allergies (Unverified , 12/06/08) Patient Home Medication List Home Medication List Reviewed: Yes Review of Systems Review of Systems Constitutional: no symptoms reported EENTM: no symptoms reported Respiratory: no symptoms reported Cardiovascular: see HPI Gastrointestinal: no symptoms reported Genitourinary: no symptoms reported : No Musculoskeletal: no symptoms reported Skin: no symptoms reported Psychiatric/Neurological: No Symptoms Reported Hematologic/Lymphatic: No Symptoms Reported Past Hpxkhda-Ixlbfe-Nldbbh Hx Past Med/Social Hx: Reviewed and Corrections made Patient Social History Alcohol Use: Occasionally Uses Recreational Drug Use: No Smoking Status: Former Smoker Type Used: Cigarettes Recent Foreign Travel: No Contact w/Someone Who Travel: No Recent Infectious Disease Expo: No Recent Hopitalizations: No Past Medical History Surgeries: Yes (sinus, hernia repair, d&c, 4 c-sections, BARIATRIC SLEEVE ) Abdominal (hernia repairs, gastric sleeve), Section, Gallbladder, Tubal Ligation Respiratory: Yes Asthma Cardiac: No Neurological: No Reproductive Disorders: No Gastrointestinal: No Musculoskeletal: No Endocrine: Yes Hypothyroidsim HEENT: No Cancer: No Psychosocial: No Integumentary: No Blood Disorders: No Physical Exam Vital Signs Vital Signs - First Documented 01/06/19 01/06/19 21:27 23:18 Temp 97.8 Pulse 79 Resp 18 B/P (MAP) 146/96 (113) Pulse Ox 99 O2 Delivery Room Air Capillary Refill : Less Than 3 Seconds Height, Weight, BMI Height: 5'2.00" Weight: 187lbs. oz. 84.069312hy; 30.18 BMI Method:Stated General Appearance: No Apparent Distress, WD/WN HEENT: PERRL/EOMI, Normal ENT Inspection Neck: Normal Inspection Respiratory: Lungs Clear, Normal Breath Sounds, No Accessory Muscle Use, No Respiratory Distress Cardiovascular: Regular Rate, Rhythm, No Murmur, Other (mild lower extremity edema, left greater than right) Gastrointestinal: Normal Bowel Sounds, Non Tender, Soft Extremity: Non Tender, No Calf Tenderness, Swelling (bilateral lower extremity edema below the knees, left greater than right), Other (negative Barbara) Neurologic/Psychiatric: Alert, Oriented x3, No Motor/Sensory Deficits, Normal Mood/Affect, administrative job titles II-XII Norm as Tested Skin: Normal Color, Warm/Dry Progress/Results/Core Measures Suspected Sepsis Recent Fever Within 48 Hours: No Infection Criteria Present: None New/Unexplained Altered Menta: No Sepsis Screen: No Definite Risk SIRS Temperature:97.8 Pulse: 79 Respiratory Rate: 18 Laboratory Tests 01/06/19 22:17: White Blood Count 7.7 Blood Pressure 146 /96 Mean: 113 Laboratory Tests 01/06/19 22:17: Creatinine 0.75, Platelet Count 334, Total Bilirubin 0.4 Results/Orders Lab Results My Orders Vital Signs/I&O Capillary Refill : Less Than 3 Seconds Blood Pressure Mean: 113 Progress Note : Progress Note Patient was thought to likely have benign edema related to sedentary job and excessive salt intake. However, patient was quite anxious about this new edema and requested a full workup. Labs and urinalysis were reviewed. No significant abnormalities were discovered. Patient was provided reassurance and was instructed to reduce salt intake and increase water intake. Departure Impression Primary Impression: Leg edema Disposition: 01 HOME, SELF-CARE Condition: Stable Departure-Patient Inst. Decision time for Depature: 23:00 Referrals: [facility] (PCP/Family) Primary Care Physician Patient Instructions: Dependent Edema (DC) Add. Discharge Instructions: Drink plenty of water. Decrease salt intake. Follow-up with your primary care team next week. Return to the emergency room if you have worsening symptoms. Elevate your feet toward the level of your heart when they are swollen or when you're at rest. All discharge instructions reviewed with patient and/or family. Voiced understanding. Copy Copies To 1: PAULINA CHENG JOSHUA T MD January 06, 2019 23:11
[2019-01-06 23:18] VITALS: BP 121/73
== END 2019-01-06 23:19 | disposition home or self-care (01) ==
LOC: EDUNIT# 20:52 → ER 20:54
DX: R60.0 Localized edema (principal); J45.909 Unspecified asthma, uncomplicated; E03.9 Hypothyroidism, unspecified; Z87.891 Personal history of nicotine dependence; Z98.890 Other specified postprocedural states; Z98.51 Tubal ligation status
CPT/HCPCS: 36415; 80053; 81000; 83880; 85025; 85379

== ENCOUNTER 2019-03-01 19:05 | Emergency (ER) | payer SELFPAY ==
[~2019-03-01] VITALS: Ht 160 cm; Wt 81.2 kg
--- OUTSIDE RECORDS SUMMARY | 2019-03-01 19:10 | XMS REPORT ---
Author Author Migration, Doctor Organization [facility] Address Unknown Phone Unavailable Care Team Providers Care Manufacturers Service Representative Name Role Phone Migration, Doctor Unavailable Unavailable PROBLEMS Type Condition ICD9-CM Code PNY46-SK Code Onset Dates Condition Status SNOMED Code Problem Abnormal appearance of skin L98.9 Active 393758879 Problem STD (sexually transmitted disease) A64 Active 6999981 Problem Encounter for well woman exam Z01.419 Active 707505796 Problem Hot flashes due to menopause N95.1 Active 212752937 Problem Lump of breast, right N63 Active 22287485 Problem Menopausal symptoms N95.1 Active 28314114 Problem Acquired hypothyroidism E03.9 Active 647188694 Problem Encounter for screening for malignant neoplasm of cervix Z12.4 Active 008769828 Problem Routine adult health maintenance Z00.00 Active 250435999 Problem Body mass index (BMI) of 40.0-44.9 in adult Z68.41 Active 541485027 Problem Morbid (severe) obesity due to excess calories E66.01 Active 041181379 ALLERGIES No Information ENCOUNTERS Encounter Location Date Diagnosis [place] [id number] [place] [phone] Oct, Menopausal symptoms N95.1 and Morbid (severe) obesity due to excess calories E66.01 [place] [id number] [place] [phone] Oct, [facility] [id number] [place] [phone] Sep, Acquired hypothyroidism E03.9 [place] [id number] [place] [phone] Sep, Acquired hypothyroidism E03.9 [place] [id number] [place] [phone] Jun, Acquired hypothyroidism E03.9 [place] [id number] [place] [phone] 03 Jun, 2016 Acquired hypothyroidism E03.9 ; Body mass index (BMI) of 40.0-44.9 in adult Z68.41 and Morbid (severe) obesity due to excess calories E66.01 [facility] [id number] [place] [phone] 28 Apr, 2016 [facility] [id number] [place] [phone] 20 Apr, 2016 Acquired hypothyroidism E03.9 [place] [address] [address] 09 Apr, 2016 Abnormal TSH R79.89 [place] [id number] [place] [phone] Mar, Breast lump on right side at 2 o'clock position N63 [place] [address] [address] Mar, Abnormal TSH R79.89 [place] [id number] [place] [phone] Mar, Lump of breast, right N63 [place] [id number] [place] [phone] Mar, Encounter for well woman exam Z01.419 ; Encounter for screening for malignant neoplasm of cervix Z12.4 ; STD (sexually transmitted disease) A64 ; Routine adult health maintenance Z00.00 and Abnormal appearance of skin L98.9 [facility] [id number] [place] [phone] 15 Mar, 2016 Cough R05 ; Acute non-recurrent sinusitis, unspecified location J01.90 and Lump of breast, right N63 [facility] [id number] [phone] 23 Jan, 2015 Dental examination V72.2 [place] [address] [address] 14 Nov, 2014 [facility] [id number] [address] Nov, [facility] [id number] [address] December, [facility] [id number] [address] Apr, [facility] [address] [address] Apr, [facility] [id number] [address] Mar, [facility] [id number] [address] Jun, [facility] [id number] [address] 16 Mar, 2010 [facility] [address] [address] Mar, [facility] [id number] [address] Jun, IMMUNIZATIONS No Known Immunizations SOCIAL HISTORY Never Assessed REASON FOR VISIT EMR-[facility] PLAN OF CARE VITAL SIGNS MEDICATIONS No Known Medications RESULTS No Results PROCEDURES No Known procedures INSTRUCTIONS MEDICATIONS ADMINISTERED No Known Medications MEDICAL (GENERAL) HISTORY Type Description Date Medical History + H Pylori infection Medical History Helicobacter pylori (H. pylori) infection Surgical History section x4 Surgical History tubal ligation Surgical History cholecystectomy Surgical History hernia repair
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
--- NOTE | 2019-03-01 19:22 | ED GU-Female ---
General Chief Complaint: - Urinary Stated Complaint: BACK PAIN,DARK URINE Source: patient Exam Limitations: no limitations History of Present Illness Date Seen by Provider: Mar 01, 2019 Time Seen by Provider: 19:10 Initial Comments Patient presents to ER by private conveyance with chief complaint of some back pain right more than left and feeling for the past several months uterine possible bladder prolapse. She was having mild dysuria but none now. She picked up some AZO aqkf-enl-ogdgpoi Pyridium and says it did not help with her back pain. No fevers chills nausea sweats. No other significant medical history. She's noted her urine was very dark orange brown and then it became light orange after starting the Pyridium. Allergies and Home Medications Allergies Coded Allergies: No Known Drug Allergies (Unverified , 12/06/08) Home Medications Cephalexin 500 Mg Tablet, 500 MG PO BID Prescribed by: GABRIELA THAKKAR on 03/01/192022 Patient Home Medication List Home Medication List Reviewed: Yes Review of Systems Review of Systems Constitutional: No chills, No fever, No malaise EENTM: No hearing loss, No ear pain Respiratory: No cough, No short of breath Cardiovascular: No edema, No palpitations Gastrointestinal: No abdominal pain, No nausea, No vomiting Genitourinary: discharge; denies dysuria; frequency, flank pain; denies hematuria Past Tpdrpkr-Dtujel-Lmgzwl Hx Patient Social History Type Used: Cigarettes Recent Foreign Travel: No Contact w/Someone Who Travel: No Recent Hopitalizations: No Past Medical History Surgeries: Yes (sinus, hernia repair, d&c, 4 c-sections, BARIATRIC SLEEVE ) Abdominal, Section, Gallbladder, Tubal Ligation Respiratory: Yes Asthma Cardiac: No Neurological: No Reproductive Disorders: No Gastrointestinal: No Musculoskeletal: No Endocrine: Yes Hypothyroidsim HEENT: No Cancer: No Psychosocial: No Integumentary: No Blood Disorders: No Physical Exam Vital Signs Vital Signs - First Documented 03/01/19 19:06 Temp 96.4 Pulse 67 Resp 20 B/P (MAP) 134/99 (111) O2 Delivery Room Air Capillary Refill : Height, Weight, BMI Height: 5'2.00" Weight: 187lbs. oz. 84.812018bf; 30.18 BMI Method:Stated General Appearance: WD/WN, no apparent distress HEENT: PERRL/EOMI, normal ENT inspection, pharynx normal Neck: full range of motion, normal inspection Cardiovascular: normal peripheral pulses, regular rate, rhythm Respiratory: lungs clear, normal breath sounds, no respiratory distress, no accessory muscle use Gastrointestinal: normal bowel sounds, non tender, soft Pelvic: No discharge, No vaginal bleeding; other (tender pudendum without mass or discharge. No pelvic organ prolapse evident.) Back: normal inspection, CVA tenderness (R); No CVA tenderness (L), No muscle spasm; vertebral tenderness (lumbar sacral) Neurologic/Psychiatric: No alert, No normal mood/affect, No oriented x 3 Skin: No normal color Progress/Results/Core Measures Suspected Sepsis SIRS Temperature: Pulse: Respiratory Rate: Laboratory Tests 03/01/19 19:25: White Blood Count 7.5 Blood Pressure / Mean: Laboratory Tests 03/01/19 19:25: Creatinine 0.76, Platelet Count 321, Total Bilirubin 0.4 Results/Orders Lab Results Laboratory Tests Test 03/01/19 19:21 03/01/19 19:25 Range/Units Urine Color OTHER H Urine Clarity SLIGHTLY CLOUDY Urine pH 6.5 5-9 Urine Specific [place] 1.020 1.016-1.022 Urine Protein 1+ H NEGATIVE Urine Glucose (UA) NEGATIVE NEGATIVE Urine Ketones NEGATIVE NEGATIVE Urine Nitrite POSITIVE H NEGATIVE Urine Bilirubin 3+ H NEGATIVE Urine Urobilinogen 12 H NORMAL MG/DL Urine Leukocyte Esterase 3+ H NEGATIVE Urine RBC (Auto) NEGATIVE NEGATIVE Urine RBC 0-2 /HPF Urine WBC 5-10 H /HPF Urine Squamous Epithelial Cells 0-2 /HPF Urine Crystals NONE /LPF Urine Bacteria TRACE /HPF Urine Casts NONE /LPF Urine Mucus MODERATE H /LPF Urine Culture Indicated YES White Blood Count 7.5 4.3-11.0 10^3/uL Red Blood Count 4.38 4.35-5.85 10^6/uL Hemoglobin 13.2 11.5-16.0 G/DL Hematocrit 39 35-52 % Mean Corpuscular Volume 90 80-99 FL Mean Corpuscular Hemoglobin 30 25-34 PG Mean Corpuscular Hemoglobin Concent 34 32-36 G/DL Red Cell Distribution Width 13.3 10.0-14.5 % Platelet Count 321 130-400 10^3/uL Mean Platelet Volume 9.6 7.4-10.4 FL Neutrophils (%) (Auto) 45 42-75 % Lymphocytes (%) (Auto) 44 12-44 % Monocytes (%) (Auto) 7 0-12 % Eosinophils (%) (Auto) 4 0-10 % Basophils (%) (Auto) 1 0-10 % Neutrophils # (Auto) 3.4 1.8-7.8 X 10^3 Lymphocytes # (Auto) 3.3 1.0-4.0 X 10^3 Monocytes # (Auto) 0.5 0.0-1.0 X 10^3 Eosinophils # (Auto) 0.3 0.0-0.3 10^3/uL Basophils # (Auto) 0.0 0.0-0.1 10^3/uL Sodium Level 142 135-145 MMOL/L Potassium Level 3.6 3.6-5.0 MMOL/L Chloride Level 107 98-107 MMOL/L Carbon Dioxide Level 29 21-32 MMOL/L Anion Gap 6 5-14 MMOL/L Blood Urea Nitrogen 13 7-18 MG/DL Creatinine 0.76 0.60-1.30 MG/DL Estimat Glomerular Filtration Rate > 60 BUN/Creatinine Ratio 17 Glucose Level 107 H 70-105 MG/DL Calcium Level 9.0 8.5-10.1 MG/DL Corrected Calcium 8.9 8.5-10.1 MG/DL Total Bilirubin 0.4 0.1-1.0 MG/DL Aspartate Amino Transf (AST/SGOT) 16 5-34 U/L Alanine Aminotransferase (ALT/SGPT) 12 0-55 U/L Alkaline Phosphatase 63 40-136 U/L Total Protein 6.8 6.4-8.2 GM/DL Albumin 4.1 3.2-4.5 GM/DL My Orders Orders - GABRIELA THAKKAR Ua Culture If Indicated (03/01/19 19:07) Cbc With Automated Diff (03/01/19 19:16) Comprehensive Metabolic Panel (03/01/19 19:16) Ketorolac Injection (Toradol Injection) (03/01/19 19:30) Iv Heplock-Insert (Order) (03/01/19 19:16) Wet Prep (03/01/19 19:22) Urine Culture (03/01/19 19:21) Medications Given in ED Current Medications Medications Dose Ordered Sig/Hosea Route Start Time Stop Time Status Last Admin Dose Admin Ketorolac Tromethamine 30 mg ONCE ONCE IVP 03/01/19 19:30 03/01/19 19:31 DC 03/01/19 19:40 30 MG Vital Signs/I&O 03/01/19 19:06 Temp 96.4 Pulse 67 Resp 20 B/P (MAP) 134/99 (111) O2 Delivery Room Air Capillary Refill : Progress Note : Time: 19:20 Progress Note Basic labs IV Toradol and a wet prep. Urinalysis Departure Impression Primary Impression: Urinary tract infection Qualified Codes: N30.00 - Acute cystitis without hematuria Additional Impression: Bacterial vaginitis Disposition: HOME, SELF-CARE Condition: Stable Departure-Patient Inst. Decision time for Depature: 20:20 Referrals: [facility] (PCP/Family) Primary Care Physician Patient Instructions: LOCAL PHYSICIAN LIST, Pelvic Muscle (Kegel) Exercises, Urinary Tract Infection, Adult (DC) Add. Discharge Instructions: Drink plenty of fluids. Use the Keflex one capsule twice daily with food to completion. carpenters supervisor the Flagyl and take one tablet twice a day for the next week. carpenters supervisor some bcnb-dgy-iilnekw probiotics and take one capsule twice daily while on antibiotics. Follow-up with gynecology. All discharge instructions reviewed with patient and/or family. Voiced understanding. Scripts Metronidazole (Flagyl) 500 Mg Tablet 500 MG PO BID for 7 Days, #14 TAB 0 Refills Prov: GABRIELA THAKKAR 03/01/19 Cephalexin (Cephalexin) 500 Mg Tablet 500 MG PO BID for 7 Days, #14 TAB 0 Refills Prov: GABRIELA THAKKAR 03/01/19 GABRIELA THAKKAR Mar 01, 2019 19:22
[2019-03-01 19:30] LABS: CLARITY,URINE SLIGHTLY CLOUDY; COLOR,URINE OTHER; GLUCOSE, URINE (UA) NEGATIVE (NEGATIVE); KETONES,URINE NEGATIVE (NEGATIVE); LEUKOCYTE ESTERASE ,URINE 3+ (NEGATIVE); NITRITE,URINE POSITIVE (NEGATIVE); PH,URINE 6.5 (5-9); PROTEIN,URINE 1+ (NEGATIVE); UROBILINOGEN,URINE 12 MG/DL (NORMAL)
[2019-03-01] MEDS ORDERED: KETOROLAC 30 MG/ML VIAL IVP ONE (19:30)
[2019-03-01 19:36] LABS: BASOPHILS % (AUTO) 1 % (0-10); EOSINOPHILS # (AUTO) 0.3 10^3/uL (0.0-0.3); EOSINOPHILS % (AUTO) 4 % (0-10); HEMATOCRIT 39 % (35-52); HEMOGLOBIN 13.2 G/DL (11.5-16.0); LYMPHOCYTES # (AUTO) 3.3 X 10^3 (1.0-4.0); LYMPHOCYTES % (AUTO) 44 % (12-44); MEAN CORPUSCULAR HEMOGLOBIN 30 PG (25-34); MEAN CORPUSCULAR HGB CONC 34 G/DL (32-36); MEAN CORPUSCULAR VOLUME 90 FL (80-99); MEAN PLATELET VOLUME 9.6 FL (7.4-10.4); MONOCYTES # (AUTO) 0.5 X 10^3 (0.0-1.0); MONOCYTES % (AUTO) 7 % (0-12); NEUTROPHILS # (AUTO) 3.4 X 10^3 (1.8-7.8); NEUTROPHILS % (AUTO) 45 % (42-75); PLATELET COUNT 321 10^3/uL (130-400); RED CELL DISTRIBUTION WIDTH 13.3 % (10.0-14.5); WHITE BLOOD COUNT 7.5 10^3/uL (4.3-11.0)
[2019-03-01 19:45] LABS: BACTERIA,URINE TRACE /HPF; BILIRUBIN,URINE 3+ (NEGATIVE); RBC,URINE 0-2 /HPF
[2019-03-01 19:46] LABS: SQUAMOUS EPITHELIAL CELL,UR 0-2 /HPF
[2019-03-01 19:56] LABS: ALANINE AMINOTRANSFERASE 12 U/L (0-55); ALBUMIN 4.1 GM/DL (3.2-4.5); ALKALINE PHOSPHATASE 63 U/L (40-136); BILIRUBIN,TOTAL 0.4 MG/DL (0.1-1.0); BUN/CREATININE RATIO 17; CARBON DIOXIDE 29 MMOL/L (21-32); CHLORIDE 107 MMOL/L (98-107); CREATININE SERUM 0.76 MG/DL (0.60-1.30); GFR ESTIMATED > 60; GLUCOSE 107 MG/DL (70-105); POTASSIUM 3.6 MMOL/L (3.6-5.0); SODIUM 142 MMOL/L (135-145); TOTAL PROTEIN 6.8 GM/DL (6.4-8.2)
[2019-03-01] MEDS ORDERED: CEPH500T PO (20:23)
[2019-03-01] MEDS ORDERED: METR500T PO (20:44)
[2019-03-01 20:48] VITALS: BP 126/84
[2019-03-02] MEDS ORDERED: CEPH500T PO (20:13)
== END 2019-03-01 20:48 | disposition home or self-care (01) ==
LOC: EDUNIT# 19:05 → ER 19:06
DX: N39.0 Urinary tract infection, site not specified (principal); N76.0 Acute vaginitis; B96.89 Other specified bacterial agents as the cause of diseases classified elsewhere; J45.909 Unspecified asthma, uncomplicated; E03.9 Hypothyroidism, unspecified; Z98.890 Other specified postprocedural states; Z98.51 Tubal ligation status
CPT/HCPCS: 36415; 80053; 81000; 85025; 87088; 87210; 96374; 99284

== ENCOUNTER 2019-10-30 12:10 | Outpatient (CLI) | payer OTHER ==
[~2019-10-30] VITALS: Ht 160 cm; Wt 86.1 kg
[~2019-10-30 12:10] MED LIST changes: +CEPH500T PO; +METR500T PO
[2019-10-30] MEDS ORDERED: NF-ESOM40C PO (12:25)
[2019-10-30 12:29] VITALS: BP 132/82
--- NOTE | 2019-10-30 13:04 | Diagnostic Imaging Report ---
Indication: Preop hysterectomy PA and lateral chest Heart size and pulmonary vascularity are normal. Lungs are clear. There are no effusions or pneumothoraces. IMPRESSION: Negative chest Dictated by: Dictated on workstation # [id number]
[2019-10-30 13:15] LABS: BASOPHILS % (AUTO) 0 % (0-10); EOSINOPHILS # (AUTO) 0.5 10^3/uL (0.0-0.3); EOSINOPHILS % (AUTO) 5 % (0-10); HEMATOCRIT 41 % (35-52); HEMOGLOBIN 13.4 G/DL (11.5-16.0); LYMPHOCYTES # (AUTO) 2.7 X 10^3 (1.0-4.0); LYMPHOCYTES % (AUTO) 30 % (12-44); MEAN CORPUSCULAR HEMOGLOBIN 30 PG (25-34); MEAN CORPUSCULAR HGB CONC 33 G/DL (32-36); MEAN CORPUSCULAR VOLUME 91 FL (80-99); MEAN PLATELET VOLUME 9.5 FL (7.4-10.4); MONOCYTES # (AUTO) 0.4 X 10^3 (0.0-1.0); MONOCYTES % (AUTO) 5 % (0-12); NEUTROPHILS # (AUTO) 5.4 X 10^3 (1.8-7.8); NEUTROPHILS % (AUTO) 60 % (42-75); PLATELET COUNT 322 10^3/uL (130-400); RED CELL DISTRIBUTION WIDTH 13.2 % (10.0-14.5)
== END 2019-10-30 13:00 | disposition home or self-care (01) ==
LOC: PREOP 12:10
PROVIDERS: ATTEND Obstetrics & Gynecology
DX: Z01.818 Encounter for other preprocedural examination (principal); Z01.812 Encounter for preprocedural laboratory examination; N81.11 Cystocele, midline
CPT/HCPCS: 36415; 71046; 85025; 86850; 86900; 86901; 87081; 93005

== ENCOUNTER 2019-11-06 06:08 | Inpatient (IN) | payer OTHER ==
[2019-11-06] VITALS (13 sets, daily range): BP systolic 121–138; BP diastolic 68–98
[~2019-11-06] VITALS: Ht 160 cm; Wt 86.1 kg
[~2019-11-06 06:08] MED LIST changes: +NF-ESOM40C PO
[2019-11-06] MEDS ORDERED: metroNIDAZOLE 500MG/100ML IVPB 100 ML IV ONE (06:45)
[2019-11-06] MEDS ORDERED: FAMOTIDINE 20MG/2ML IV (PEPCID) IV ONE (06:45)
[2019-11-06] MEDS ORDERED: DEXAMETHASONE 10 MG/ML (DECADRON) 1 ML VIAL ONE (06:53)
[2019-11-06] MEDS ORDERED: SEVOFLURANE (ULTANE) 15 ML INHAL SOLN ONE ×8 (06:53→10:29)
[2019-11-06] MEDS ORDERED: LIDOCAINE PF 2% 5 ML (XYLOCAINE) VIAL ONE (06:53)
[2019-11-06] MEDS ORDERED: ONDANSETRON 4 MG/2 ML (SDV) Z0FRAN ONE (06:53)
[2019-11-06] MEDS ORDERED: ROCURONIUM 10 MG/ML 5 ML SYRINGE IV ONE (06:53)
[2019-11-06] MEDS ORDERED: proPOfol 200 MG/20 ML (DIPRIVAN) VIAL IV ONE (06:53)
[2019-11-06] MEDS ORDERED: fentaNYL INJECTION 100 MCG/2 ML AMP ONE (06:54)
[2019-11-06] MEDS ORDERED: FAMOTIDINE 20MG/2ML IV (PEPCID) ONE (06:54)
[2019-11-06] MEDS ORDERED: ceFAZolin 2 GM IV Premixed 50 ML ONE (06:54)
[2019-11-06] MEDS ORDERED: MIDAZOLAM 2 MG/2 ML (VERSED) VIAL ONE (06:54)
[2019-11-06] MEDS ORDERED: metroNIDAZOLE 500MG/100ML IVPB 100 ML ONE (06:54)
[2019-11-06] MEDS ORDERED: ESTRADIOL VAGINAL CREAM 42.5 GM (ESTRACE) VG ONE (06:57)
[2019-11-06] MEDS ORDERED: LIDOCAINE/EPI 1%-1:100,000 (XYLOCAINE) 20ML ONE (06:58)
[2019-11-06] MEDS: LACTATED RINGERS 1,000 ML IV PRN ×2 (07:07→08:07)
--- NOTE | 2019-11-06 07:08 | Anesthesia-General Post-Op ---
General Significant Intra-Op Events Notes addendum to 10-31-19 09 Patient Condition Mental Status/LOC: Same as Preop Cardiovascular: Satisfactory Nausea/Vomiting: Absent Respiratory: Unsatisfactory Pain: Controlled Complications: Present Post Op Complications Complications None Follow Up Care/Instructions Patient Instructions None needed. Anesthesia/Patient Condition Patient Condition ANABELLA LANDIN CRNA Nov 06, 2019 07:08
[2019-11-06] MEDS ORDERED: ceFAZolin 2 GM/50 ML (PRE-MIXED) IV ONE (07:15)
--- NOTE | 2019-11-06 07:20 | History & Physical-OB/GYN ---
History of Present Illness History of Present Illness Reason for visit/HPI Scheduled surgery, Total Abdominal Hysterectomy with Bilateral Salpingo- oophorectomy/Bladder procedure by Dr. Velarde Date of Admission Nov 06, 2019 at 06:08 Date Seen by a Provider: Nov 06, 2019 Time Seen by a Provider: 07:00 I consulted on this patient on 11/06/19 07:13 Attending Physician Christiano Almeida DO Admitting Physician Christiano Almeida DO Consult Allergies and Home Medications Allergies Coded Allergies: No Known Drug Allergies (Unverified , 12/06/08) Home Medications Esomeprazole Magnesium 40 Mg Cap, 40 MG PO DAILY, (Reported) Patient Home Medication List Home Medication List Reviewed: Yes Past Qkwqowc-Odxlle-Oxzshy Hx Patient Social History Marrital Status: Number of Children: 4 Number of living children: 4 Alcohol Use: Rarely Uses Number of Drinks Today: 0 Recreational Drug Use: No Smoking Status: Former Smoker Former Smoker, Quit: Oct 29, 1989 Type Used: Cigarettes 2nd Hand Smoke Exposure: No Physical Abuse Screen: No Sexual Abuse: No Recent Foreign Travel: No Contact w/other who traveled: No Recent Hopitalizations: No Recent Infectious Disease Expo: No Seasonal Allergies Seasonal Allergies: Yes Surgeries Yes (sinus, hernia repair, d&c, 4 c-sections, BARIATRIC SLEEVE ) Abdominal, Section, Gallbladder, Tubal Ligation Respiratory Yes (asthma as a child) Cardiovascular No Neurological No Reproductive System Hx Reproductive Disorders: No Genitourinary Yes (cystocele) Gastrointestinal Yes Gastroesophageal Reflux Musculoskeletal No Endocrine History of Endocrine Disorders: No Endocrine Disorders: Hypothyroidsim HEENT History of HEENT Disorders: No Cancer No Psychosocial History of Psychiatric Problem: No Integumentary History of Skin or Integumenta: No Blood Transfusions History of Blood Disorders: No Family Medical History Family Hx: FH: cancer G8 BROTHER FH: lymphoma, malignant 19 MOTHER Hypertension 19 MOTHER Myocardial infarction 19 FATHER Review of Systems Constitutional: see HPI Physical Exam Physical Exam Vital Signs Vital Signs Date Time Temp Pulse Resp B/P (MAP) Pulse Ox O2 Delivery O2 Flow Rate FiO2 11/06/19 06:30 36.4 72 18 127/86 99 Room Air 11/06/19 06:30 99 Room Air Capillary Refill : General Appearance: No Apparent Distress, WD/WN Respiratory: Chest Non Tender, Lungs Clear, Normal Breath Sounds Cardiovascular: Regular Rate, Rhythm, No Murmur Abdominal: normal bowel sounds, soft Vagina: WNL Cervix: WNL Cervix OS: closed Uterus: WNL Ovaries: WNL Extremity: Normal Inspection, Non Tender, No Calf Tenderness Assessment/Plan Assessment and Plan Assessment: Cystocele Plan: I am going to do a Total Abdominal Hysterectomy with Bilateral Salpingo- oophorectomy. Dr. Velarde will follow by doing a bladder suspension procedure. The procedure and its associated risks were reviewed. All questions were answered. Admission Diagnosis Admission Status: Inpatient Order (span 2 midnights) Reason for Inpatient Admission: Scheduled surgery, Total Abdominal Hysterectomy with Bilateral Salpingo-oophorectomy followed by a bladder suspension procedure by Dr. Velarde. CHRISTIANO ALMEIDA DO Nov 06, 2019 07:20
[2019-11-06] MEDS ORDERED: BUPIVACAINE 0.5% 30 ML (SENSORCAINE) VIAL ONE (07:38)
--- NOTE | 2019-11-06 08:40 | Progress Note-Pre Operative ---
Pre-Operative Progress Note H&P Reviewed The H&P was reviewed, patient examined and no changes noted. Date Seen by Provider: Nov 06, 2019 Time Seen by Provider: 07:00 Date H&P Reviewed: Nov 06, 2019 Time H&P Reviewed: 07:00 Pre-Operative Diagnosis: BOBY GTZ MD Nov 06, 2019 08:40
--- NOTE | 2019-11-06 08:42 | Progress Note-Post Operative ---
Post-Operative Progess Note Surgeon (s)/Engineering Team Supervisor (s) Surgeon BOBY LANDERS MD Engineering Team Supervisor: MD MISSY Pre-Operative Diagnosis CYSTOCELE AND PARVEZ Post-Operative Diagnosis SAME Procedure & Operative Findings Date of Procedure 11/06/19 Procedure Performed/Findings ANTERIOR REPAIR, PVS, AND CYSTOSCOPY Anesthesia Type GENERAL Estimated Blood Loss Estimated blood loss (mL): NEGLIGIBLE Specimens/Packing Specimens Removed NONE TO PATHOLOGY Packing: ESTRACE VAG PACK BOBY LANDERS MD Nov 06, 2019 08:42
[2019-11-06] MEDS ORDERED: ONDANSETRON 4 MG/2 ML (SDV) Z0FRAN IVP PRN ×2 (09:15→10:30)
[2019-11-06] MEDS ORDERED: ACETAMINOPHEN 500 MG TAB (TYLENOL) PO PRN (09:15)
[2019-11-06] MEDS ORDERED: fentaNYL INJECTION 100 MCG/2 ML AMP IVP PRN (09:15)
--- NOTE | 2019-11-06 09:34 | Operative Report ---
Operative Report Date of Procedure/Surgery Nov 06, 2019 Surgeon (s) LORE LOUIS DO Community Relations Assistant (s): None Post-Operative Diagnosis Cystocele Procedure Performed Supracervical Abdominal Hysterectomy with Bilateral Salpingo-oophorectomy Description of Procedure Anesthesia Type: General Estimated blood loss (mL): 200 ml Specimen(s) collected/removed Uterus (supra-cervical), fallopian tubes, and ovaries Packing: ESTRACE VAG PACK Description of the Procedure Ms. Monsalve was taken to the Operating Room with IV fluids running. Once in the OR, general anesthesia was administered without complications. She was placed in the dorsal lithotomy position, prepped and draped in the normal sterile fashion. A vertical elliptical incision was made over her previous skin scar--the old scar was removed. The incision was then taken down to the underlying layer of the fascia. The fascia was nicked and extended superiorly and inferiorly. The peritoneum was entered sharply and extended superiorly and inferiorly. The Craig'Shaan-Craig'Luciano self retaining retractor was placed in the incision. The bowel was packed away superiorly with moist laparotomy sponges. The uterus was grasped with a jessica, which we would used for any manipulations. The round ligament on both sides were doubly clamped, cut and suture ligated. The vesicouterine peritoneum was dissected off the anterior portion of the uterus and cervix. However, I didn't feel it was complete pushed caudally. At this point, the infundibulopelvic ligament on both sides were doubly clamped, cut and suture ligated with 0-Vicryl. The remainder of the broad ligament was serially clamped, cut and suture ligate with 0-Vicryl. At this point an attempt at pushing the remainder of the bladder caudally failed, consequently, a supracervical amputation was performed. The uterus, fallopian tubes, and ovaries were sent to pathology. The cervical stump was oversewn with 0-Vicryl. Hemostasis was noted throughout the pelvic cavity. All sponges and instruments were removed from the pelvic and abdominal cavities. The peritoneum was approximated with 3-0 Vicryl. The fascia was closed with 0-Vicryl. The subcutaneous tissues were approximated with 3-0 Plain Gut. The skin was closed with a 4-0 Vicryl in a subcuticular manner. Sponge, instruments, and needle counts were correct x 3. At this point, Dr. Velarde was going to do a bladder procedure. . Findings of the Procedure Very small uterus, normal appearing ovaries, evidence of tubal ligation Allergies and Home Medications Allergies Coded Allergies: No Known Drug Allergies (Unverified , 12/06/08) Home Medications Esomeprazole Magnesium 40 Mg Cap, 40 MG PO DAILY, (Reported) Patient Home Medication List Home Medication List Reviewed: Yes LORE LOUIS DO Nov 06, 2019 09:33
[2019-11-06] MEDS ORDERED: morphine INJ 10 MG/ML 1ML (SYR OR VIAL) IVP ONE (10:30)
[2019-11-06] MEDS ORDERED: MEPERIDINE (DEMEROL) INJ 50 MG/ML IVP ONE (10:30)
[2019-11-06] MEDS ORDERED: morphine INJ 10 MG/ML 1ML (SYR OR VIAL) ONE (10:30)
[2019-11-06] MEDS ORDERED: PROMETHAZINE INJ 25 MG/ML (PHENERGAN) AMP IVP ONE (10:30)
[2019-11-06] MEDS ORDERED: HYDROmorphone 2 MG/ML VIAL (DILAUDID) IV ONE (10:30)
[2019-11-06] MEDS: KETOROLAC 30 MG/ML VIAL IVP SCH ×3 (10:37→21:10)
--- NOTE | 2019-11-06 11:09 | Anesthesia-General Post-Op ---
General Patient Condition Mental Status/LOC: Same as Preop Cardiovascular: Satisfactory Nausea/Vomiting: Absent Respiratory: Satisfactory Pain: Controlled Complications: Absent Post Op Complications Complications None Follow Up Care/Instructions Patient Instructions None needed. Anesthesia/Patient Condition Patient Condition Patient is doing well in PACU, C/O of some abd pain which is to be expected and controlled with meds, stable vital signs, no apparent adverse anesthesia problems. ZEYNEP MENENDEZ DO Nov 06, 2019 11:09
--- NOTE | 2019-11-06 11:20 | NUR ---
To room 306. Report from Will Tee RN.
--- NOTE | 2019-11-06 11:25 | NUR ---
Midline island dressing marked with pen from shadowing of drainage.
[2019-11-06] MEDS ORDERED: LORazepam INJ 2 MG/ML (ATIVAN) VIAL IVP ONE (12:30)
[2019-11-06] MEDS: D5 LR IV SOLUTION 1,000 ML IV SCH ×2 (13:08→20:09)
[2019-11-06] MEDS: ONDANSETRON 4 MG (ZOFRAN) ORAL DISSOLVE TAB PO SCH ×2 (13:24→21:36)
[2019-11-06] MEDS: METOCLOPRAMIDE 5 MG (REGLAN) TAB PO SCH ×3 (13:24→21:15)
--- NOTE | 2019-11-06 14:52 | OPERATIVE REPORT ---
DATE OF SERVICE: 11/06/2019 PREOPERATIVE DIAGNOSIS: On my part, cystocele and stress urinary incontinence. POSTOPERATIVE DIAGNOSIS: On my part, cystocele and stress urinary incontinence. OPERATION PERFORMED: Anterior repair and pubovaginal sling. SURGEON: Yifan Landers MD. ANESTHESIA: General. COMPLICATIONS: None. DESCRIPTION OF PROCEDURE: Under satisfactory general anesthesia, the patient in an extended lithotomy position after Dr. Almeida finished his part of the surgery that he will dictate, I inserted a Tomlin catheter draining clear urine. I went ahead and injected local anesthetic in the vaginal mucosa anteriorly and made a vertical incision into the vaginal mucosa and carried down to the fascia and dissection carried to the pubic arch. The fascia was approximated with four interrupted #2 Vicryl sutures giving excellent support to the bladder. I went ahead and passed the Solyx device on both sides using the described technique. The sling was sitting nicely under the mid urethra with no twisting, tension and passage of a curved hemostat easily between it and the underlying tissue. I removed the Tomlin catheter and performed cystoscopy to confirm the integrity of the bladder, ureteral orifices and urethra with no foreign body and the sling lying under the mid urethra. I left the bladder half full, removed the cystoscope, performed a manual Valsalva maneuver that was negative. I reinserted the Tomlin catheter draining clear fluid. I excised the excessive vaginal mucosa and then approximated the vaginal mucosa with a running 2-0 Vicryl Rapide type suture. A vaginal pack with Estrace was inserted. Estimated blood loss negligible, none of which was replaced. The instruments, needles and sponge counts were correct. The patient tolerated the procedure and anesthesia well and was sent to the recovery room in stable condition. Job ID: [id number] DocumentID: [id number] Dictated Date: 11/06/2019 10:01:10 Regional Economic Liaison Date: 11/06/2019 14:52:27 Dictated By: YIFAN LANDERS MD
[2019-11-06] MEDS ORDERED: FLU QUADRIvalent (5+ YOA) 2019-2020 (AFLURIA) 0.5 ML IM ONE (18:45)
[2019-11-06] MEDS ORDERED: ZOLPIDEM 5 MG (AMBIEN) TAB PO SCH (21:00)
--- NOTE | 2019-11-06 21:11 | NUR ---
2100 tordol and oxycodone not given at this time earlier admin given late will given at 2400 pt denies pain at this time
--- NOTE | 2019-11-06 21:51 | NUR ---
oxycodone given for c/o pain .. pt states she does not want the flu vacc..
[2019-11-07 01:41] VITALS: BP 99/66
[2019-11-07] MEDS: METOCLOPRAMIDE 5 MG (REGLAN) TAB PO SCH ×2 (01:41→08:38)
[2019-11-07] MEDS: KETOROLAC 30 MG/ML VIAL IVP SCH (01:41)
[2019-11-07] MEDS ORDERED: MILK OF MAGNESIA 400 MG/5 ML 30 ML UDC PO ONE (05:00)
[2019-11-07] MEDS ORDERED: BISACODYL 10 MG SUPP (DULCOLAX) PR ONE (05:00)
[2019-11-07 05:34] VITALS: BP 105/67
[2019-11-07] MEDS: D5 LR IV SOLUTION 1,000 ML IV SCH (05:44)
--- NOTE | 2019-11-07 05:57 | NUR ---
total 12 hour output for this shift 300ml and urine green tinted in nature. Tomlin left in place and iv running until rounds for eval.
--- NOTE | 2019-11-07 05:58 | NUR ---
dressing in place as prefers to remove his own dressings. int not completed.
--- NOTE | 2019-11-07 07:00 | NUR ---
Vag packing dcd via previous shift. Marcus Graves RN
--- NOTE | 2019-11-07 07:45 | NUR ---
Dr Almeida here to see pt. Dr Almeida removed dressing. Dr Almeida discussed POC with pt. Pt verbalized understanding.
[2019-11-07] MEDS ORDERED: OXC5T PO (08:29)
[2019-11-07] MEDS ORDERED: ACET-93 PO (08:29)
[2019-11-07] MEDS ORDERED: DCS100C PO (08:29)
[2019-11-07] MEDS ORDERED: IBUP-1780 PO (08:29)
--- NOTE | 2019-11-07 08:35 | Discharge Summary ---
Diagnosis/Chief Complaint Date of Admission Nov 06, 2019 at 06:08 Date of Discharge November 07, 2019 Discharge Date: Nov 07, 2019 Discharge Time: 13:00 Admission Diagnosis Admission Diagnosis Cystocele Discharge Diagnosis Cystocele Reason Hospital Visit Scheduled surgery, Total Abdominal Hysterectomy with Bilateral Salpingo-oophorec natividad/Bladder procedure by Dr. Velarde Discharge Summary Hospital Course Was the Problem List Reviewed?: Yes Hospital Course Ms. Monsalve was admitted for scheduled surgery, Supra-cervical Abdominal Hysterectomy with Bilateral Salpingo-oophorectomy (by ok) and a bladder procedure by Dr. Velarde (please refer to Dr. Velarde's operative report). Both surgery were performed without complications. On her day of surgery, she was started on IV and oral pain medications along with other comfort measures. She did well. Postoperative Day #1, found Ms. Monsalve voiding, ambulating, moving her bowels, tolerating a Regular Diet, and controlling her pain with oral medications. Her vital signs remained stable throughout her hospitalization. The remainder of her hospitalization was unremarkable. I will discharge her to home with instructions, prescriptions, and a follow up appointment. Procedures None. Discharge Physical Examination Allergies: Coded Allergies: No Known Drug Allergies (Unverified , 12/06/08) Vitals & I&Os Vital Signs Date Time Temp Pulse Resp B/P (MAP) Pulse Ox O2 Delivery O2 Flow Rate FiO2 11/07/19 05:34 37.5 86 20 105/67 (80) 99 Room Air 11/06/19 20:00 3.00 General Appearance: Alert, Oriented X3, Cooperative HEENT: Atraumatic Respiratory: Clear to Auscultation, Normal Air Movement Cardiovascular: Regular Rate, No Murmurs Abdominal: Normal Bowel Sounds, Soft, Other (Mild tenderness. Incision is clean, dry and well approximated) Extremities: No Cyanosis Skin: No Rashes Neuro: Normal Gait, Normal Speech Psych/Mental Status: Mental Status NL Discharge Home Medications Reviewed and agree with Discharge Medication list on patient's Discharge Instruction sheet Instructions to Patient/Family Please see electronic discharge instructions given to patient. LORE LOUIS DO Nov 07, 2019 08:35
[2019-11-07] MEDS: ONDANSETRON 4 MG (ZOFRAN) ORAL DISSOLVE TAB PO SCH (08:38)
[2019-11-07] MEDS ORDERED: DOCUSATE SODIUM 100 MG (COLACE) CAP PO SCH (09:00)
[2019-11-07] MEDS ORDERED: IBUPROFEN 800 MG (MOTRIN) TAB PO SCH (09:15)
--- NOTE | 2019-11-07 10:05 | Progress Note - Urology ---
Progress Note-Urology Progress Notes/Assess & Plan Progress/Assessment & Plan DOING WELL. VOIDING WELL. DRY. HAPPY. EMPTIES WELL Final Diagnosis PARVEZ AND CYSTOCELE BOBY LANDERS MD Nov 07, 2019 10:05
[2019-11-07 10:55] VITALS: BP 105/67
--- NOTE | 2019-11-07 11:02 | NUR ---
MISHEL AHMADI demonstrates understanding of discharge instructions and accurately returns instructions upon questioning. Copy of Post-Discharge Instructions and Medication Discharge Instructions given to Mishel. MISHEL AHMADI is able to manage continuing needs after discharge. Patients belongings returned to patient. Skin dry and intact; no breakdown noted. Patient discharged from [facility] in [place] on 11/07/19 at 11:00am. MISHEL AHMADI Fernando left floor via wheel chair, accompanied by women services staff. NO s/s of distress. NO concerns voiced via pt. Pt to personal vehicle.
== END 2019-11-07 11:05 | disposition home or self-care (01) | DRG 743 ==
LOC: 4TH 06:08 → SURG 06:09 → WS 11:20
PROVIDERS: ADMIT Obstetrics & Gynecology; ATTEND Obstetrics & Gynecology
PROC: 0UT70ZZ Resection of Bilateral Fallopian Tubes, Open Approach (ICD-10-PCS; 2019-11-06)
PROC: 0TSD0ZZ Reposition Urethra, Open Approach (ICD-10-PCS; 2019-11-06)
PROC: 0JQC0ZZ Repair Pelvic Region Subcutaneous Tissue and Fascia, Open Approach (ICD-10-PCS; 2019-11-06)
PROC: 0UT90ZL Resection of Uterus, Supracervical, Open Approach (ICD-10-PCS; principal; 2019-11-06 07:47)
PROC: 0UT20ZZ Resection of Bilateral Ovaries, Open Approach (ICD-10-PCS; 2019-11-06 07:47)
DX: N81.10 Cystocele, unspecified (principal); N39.3 Stress incontinence (female) (male); K21.9 Gastro-esophageal reflux disease without esophagitis; E03.9 Hypothyroidism, unspecified; Z87.891 Personal history of nicotine dependence
CPT/HCPCS: 86850; 86900; 86901

== ENCOUNTER → 2021-12-11 | Outpatient (CLI) | payer SELFPAY ==
[~2021-12-11] MED LIST changes: +ACET-93 PO; +CATHETER FLUSH 10 ML SYR IV PRN; +CYCL10TA25 PO; -CYCL10TA9 PO; +DOCU-239 PO; +HOLD METFORMIN - RECEIVED CONTRAST 20 ML VIAL IV SCH; +IBUP-1780 PO; +IOHEXOL 350 MG/ML 100 ML (OMNIPAQUE 350) VIAL IV ONE; +NS 100 ML (IVPB) BAG IV ONE; +OXC5T PO
[2021-12-11 08:38] LABS: HEMATOCRIT 41 % (35-52); HEMOGLOBIN 13.4 g/dL (11.5-16.0); MEAN CORPUSCULAR HEMOGLOBIN 30 pg (25-34); MEAN CORPUSCULAR HGB CONC 33 g/dL (32-36); MEAN CORPUSCULAR VOLUME 91 fL (80-99); MEAN PLATELET VOLUME 9.2 fL (9.0-12.2); PLATELET COUNT 311 10^3/uL (130-400); WHITE BLOOD COUNT 6.5 10^3/uL (4.3-11.0)
[2021-12-11 08:55] LABS: BILIRUBIN,TOTAL 0.5 MG/DL (0.1-1.0); CALCIUM 8.9 MG/DL (8.5-10.1); CREATININE SERUM 0.71 MG/DL (0.60-1.30); POTASSIUM 3.7 MMOL/L (3.6-5.0); TOTAL PROTEIN 6.7 GM/DL (6.4-8.2)
--- NOTE | 2021-12-11 09:57 | Diagnostic Imaging Report ---
PROCEDURE: CT abdomen with and without contrast. TECHNIQUE: Multiple contiguous axial CT images of the abdomen were obtained prior to and after intravenous administration of iodinated contrast. Auto Exposure Controls were utilized during the CT exam to meet ALARA standards for radiation dose reduction. INDICATION: Palpable abnormalities in the abdomen bilaterally. Surgical findings are seen along the greater curvature of stomach with mild hiatal hernia present. There is mild scarring within the lingula. No focal hepatic, pancreatic, adrenal gland or splenic lesion is identified. Minimal cortical cysts are present within the kidneys, however, no hydronephrosis or solid renal mass is identified. There is no free abdominal fluid or focal inflammation. No organized fluid collection is identified. There are bilateral anterior abdominal wall defects with an approximately 1.5 cm transverse diameter defect in the right anterior abdominal wall at the level of celiac trunk which contains herniated fat and vessels. No bowel hernia is seen. There is also defect measuring 3 cm in transverse diameter in the left anterior abdominal wall containing herniated omental fat. There is also focal anterior abdominal wall defect at the level of the umbilicus containing herniated fat. There is no bowel obstruction or dilatation. IMPRESSION: Omental fat hernias are seen in the anterior abdominal wall bilaterally and at the level of umbilicus. These contain only fat and vessels without bowel herniation. There is no evidence of bowel obstruction or other acute abnormality within the abdomen. Dictated by: Dictated on workstation # [id number]
== END ==
LOC: RAD 09:15
PROVIDERS: ATTEND Nurse Practitioner Family
DX: K46.9 Unspecified abdominal hernia without obstruction or gangrene (principal); Z98.890 Other specified postprocedural states
CPT/HCPCS: 36415; 74170; 80053; 85027; 86141